=== PATIENT | female | born 1955 | race Caucasian/White ===

== ENCOUNTER 2020-08-24 10:50 | Emergency (ER) | payer OTHER, BC ==
[2020-08-24] MEDS ORDERED: Sodium Chloride 0.9% 10 ML Syringe FLUSH PRN ×2 (11:11→11:19)
[2020-08-24] MEDS ORDERED: HYDROmorphone 0.5 MG/0.5 ML Syringe IVPUSH ONE (11:13)
[2020-08-24] MEDS ORDERED: Ondansetron 4 MG/2 ML SDV IVPUSH ONE (11:13)
[2020-08-24] MEDS ORDERED: Sodium Chloride 0.9% 1,000 ML IV SCH (11:15)
[2020-08-24] MEDS ORDERED: Iopamidol 612 MG/ML 100 ML Bottle IVPUSH ONE (11:19)
--- NOTE | 2020-08-24 11:30 | EDM.PDOC ---
ED HPI GENERAL MEDICAL PROBLEM - General Chief Complaint: Back Pain or Injury Stated Complaint: PAIN IN BACK Time Seen by Provider: 08/24/20 11:05 Source of Information: Reports: Patient History Limitations: Reports: No Limitations - History of Present Illness INITIAL COMMENTS - FREE TEXT/NARRATIVE: 64-year-old female presents to the emergency department with complaints of right lower back pain and difficulty voiding. Patient was sent here by [facility]. On 22 August, 2 days ago, the patient fell backwards onto the hitch of a pickup truck. Her right lower back struck the hitch. Patient states that immediately after this event occurred she had difficulty voiding. She does complain of pain to low back and is unable to lay down flat. She states that when she sits on the toilet to void it takes her a long time to get her flow started and her urine "trickles "out of her. She states she has not noted any belia red blood in her urine. She denies any significant medical history and does not take any prescription medications. She has been taking Flexeril as prescribed by the [facility] however she states that has not been helping her discomfort. Lower Back Pain Score (Numeric/FACES): 10 - Related Data Allergies Allergy/AdvReac Type Severity Reaction Status Date / Time No Known Allergies Allergy Verified 08/24/20 11:01 Home Meds: Home Meds Cefdinir [Omnicef] 300 mg PO BID #10 cap 08/24/20 [Rx] Past Medical History Endocrine/Metabolic History: Reports: Obesity/BMI 30+ Oncologic (Cancer) History: Reports: Uterine - Past Surgical History HEENT Surgical History: Reports: LASIK Female Surgical History: Reports: Section, Hysterectomy Musculoskeletal Surgical History: Reports: Other (See Below) Other Musculoskeletal Surgeries/Procedures:: left and right ankle surgeries Social & Family History - Tobacco Use Tobacco Use Status *Q: Never Tobacco User - Caffeine Use Caffeine Use: Reports: None - Recreational Drug Use Recreational Drug Use: No ED ROS GENERAL - Review of Systems Review Of Systems: See Below Constitutional: Reports: No Symptoms HEENT: Reports: No Symptoms Respiratory: Reports: No Symptoms Cardiovascular: Reports: No Symptoms Endocrine: Reports: No Symptoms GI/Abdominal: Reports: No Symptoms : Reports: Other (hesitancy). Denies: Hematuria, Incontinence Musculoskeletal: Reports: Other (right lower back lumbar region) Skin: Reports: Bruising (right lower lumbar area) Neurological: Reports: No Symptoms Psychiatric: Reports: No Symptoms Hematologic/Lymphatic: Reports: No Symptoms Immunologic: Reports: No Symptoms ED EXAM, GI/ABD - Physical Exam Exam: See Below Exam Limited By: No Limitations General Appearance: Alert, WD/WN, Mild Distress Eyes: Bilateral: EOMI Ears: Normal External Exam, Hearing Grossly Normal Nose: Normal Inspection, Normal Mucosa, No Blood Throat/Mouth: Normal Inspection, Normal Lips, No Airway Compromise Head: Atraumatic, Normocephalic Neck: Normal Inspection, Supple, Non-Tender, Full Range of Motion Respiratory/Chest: No Respiratory Distress, Lungs Clear, Normal Breath Sounds, No Accessory Muscle Use, Chest Non-Tender Cardiovascular: Normal Peripheral Pulses, Regular Rate, Rhythm, No Edema, No Murmur GI/Abdominal Exam: Normal Bowel Sounds, Soft, Non-Tender, No Distention (Female) Exam: Deferred Rectal (Female) Exam: Deferred Back Exam: Normal Inspection, Full Range of Motion Extremities: Normal Inspection, Normal Range of Motion, Non-Tender, No Pedal Edema, Normal Capillary Refill Neurological: Alert, Oriented, Normal Cognition, Normal Reflexes Psychiatric: Normal Affect, Normal Mood Skin Exam: Warm, Dry, Intact, No Rash, Ecchymosis (right lumbar lower back approximately the size of a baseball) Lymphatic: No Adenopathy Course - Vital Signs Text/Narrative:: 64-year-old female sustained a blow to her right lower back after she fell backwards and hit the hitch of a pickup truck 2 days ago. Patient now complains of difficulty voiding, specifically hesitancy and slow stream. She denies any problems with bowel movements and just had a bowel movement yesterday as she is normally constipated and takes stool softeners. She denies any numbness or tingling down her right hip or leg. Denies belia hematuria. Denies any abdominal pain or discomfort. I have ordered a CBC, CMP, urinalysis, CT of the abdomen and pelvis with IV contrast, normal saline at 100 mL's per hour to flush the kidneys of contrast, Dilaudid half milligram IV for pain and Zofran 4 mg IV for nausea. Last Recorded V/S: Last Vital Signs Temp 98.0 F 08/24/20 10:57 Pulse 71 08/24/20 10:57 Resp 16 08/24/20 10:57 BP 156/81 H 08/24/20 10:57 Pulse Ox 95 08/24/20 10:57 - Orders/Labs/Meds Orders: Active Orders 24 hr Category Date Time Status CULTURE URINE [RM] Stat Lab 08/24/20 11:37 Received Sodium Chloride 0.9% [Normal Saline] 1,000 ml Med 08/24/20 11:15 Active IV ASDIRECTED Sodium Chloride 0.9% [Saline Flush] Med 08/24/20 11:11 Active 10 ml FLUSH ASDIRECTED PRN Sodium Chloride 0.9% [Saline Flush] Med 08/24/20 11:19 Active 10 ml FLUSH ONETIME PRN Saline Lock Insert [OM.PC] Stat Oth 08/24/20 11:11 Ordered Medication Orders Sodium Chloride (Normal Saline) 1,000 mls @ 100 mls/hr IV ASDIRECTED DOMINIC Last Admin: 08/24/20 11:34 Dose: 100 mls/hr Documented by: MATLBIL Sodium Chloride (Saline Flush) 10 ml FLUSH ASDIRECTED PRN PRN Reason: Keep Vein Open Last Admin: 08/24/20 12:55 Dose: 10 ml Documented by: EBERELI Sodium Chloride (Saline Flush) 10 ml FLUSH ONETIME PRN PRN Reason: IV FLUSH Last Admin: 08/24/20 12:04 Dose: 10 ml Documented by: SCARLET Labs: Laboratory Tests 08/24/20 08/24/20 08/24/20 Range/Units 11:15 11:15 11:37 WBC 9.53 (3.98-10.04) K/mm3 RBC 4.88 (3.98-5.22) M/mm3 Hgb 14.1 (11.2-15.7) gm/dl Hct 44.3 (34.1-44.9) % MCV 90.8 (79.4-94.8) fl MCH 28.9 (25.6-32.2) pg MCHC 31.8 L (32.2-35.5) g/dl RDW Std Deviation 43.3 (36.4-46.3) fL Plt Count 295 (182-369) K/mm3 MPV 9.2 L (9.4-12.3) fl Neut % (Auto) 68.1 (34.0-71.1) % Lymph % (Auto) 24.4 (19.3-51.7) % [place] % (Auto) 6.7 (4.7-12.5) % Eos % (Auto) 0.5 L (0.7-5.8) Baso % (Auto) 0.2 (0.1-1.2) % Neut # (Auto) 6.48 H (1.56-6.13) K/mm3 Lymph # (Auto) 2.33 (1.18-3.74) K/mm3 [place] # (Auto) 0.64 H (0.24-0.36) K/mm3 Eos # (Auto) 0.05 (0.04-0.36) K/mm3 Baso # (Auto) 0.02 (0.01-0.08) K/mm3 Sodium 142 (136-145) mEq/L Potassium 4.6 (3.5-5.1) mEq/L Chloride 104 (98-107) mEq/L Carbon Dioxide 28 (21-32) mEq/L Anion Gap 14.6 (5-15) BUN 12 (7-18) mg/dL Creatinine 0.8 (0.55-1.02) mg/dL Est Cr Clr Drug Dosing 56.93 mL/min Estimated GFR (MDRD) > 60 (>60) mL/min BUN/Creatinine Ratio 15.0 (14-18) Glucose 101 (80-115) mg/dL Calcium 9.3 (8.5-10.1) mg/dL Total Bilirubin 0.3 (0.2-1.0) mg/dL AST 15 (15-37) U/L ALT 26 (14-59) U/L Alkaline Phosphatase 82 (46-116) U/L Total Protein 7.5 (6.4-8.2) g/dl Albumin 4.1 (3.4-5.0) g/dl Globulin 3.4 gm/dL Albumin/Globulin Ratio 1.2 (1-2) Urine Color Yellow (Yellow) Urine Appearance Clear (Clear) Urine pH 7.5 (5.0-8.0) Ur Specific [place] 1.020 (1.005-1.030) Urine Protein Negative (Negative) Urine Glucose (UA) Negative (Negative) Urine Ketones Negative (Negative) Urine Occult Blood Negative (Negative) Urine Nitrite Negative (Negative) Urine Bilirubin Negative (Negative) Urine Urobilinogen 0.2 (0.2-1.0) Ur Leukocyte Esterase 1+ H (Negative) Urine RBC 0-5 (0-5) /hpf Urine WBC 5-10 H (0-5) /hpf Ur Squamous Epith Cells 5-10 H (0-5) /hpf Urine Bacteria Moderate H (FEW) /hpf Urine Mucus Not seen (FEW) /hpf Meds: Medications Generic Name Dose Route Start Last Admin Trade Name Freq PRN Reason Stop Dose Admin Sodium Chloride 1,000 mls @ 100 mls/hr 08/24/20 11:15 08/24/20 11:34 Normal Saline IV 100 mls/hr ASDIRECTED DOMINIC Administration Sodium Chloride 10 ml 08/24/20 11:11 08/24/20 12:55 Saline Flush FLUSH 10 ml ASDIRECTED PRN Administration Keep Vein Open Sodium Chloride 10 ml 08/24/20 11:19 08/24/20 12:04 Saline Flush FLUSH 10 ml ONETIME PRN Administration IV FLUSH Discontinued Medications Generic Name Dose Route Start Last Admin Trade Name Freq PRN Reason Stop Dose Admin Hydromorphone HCl 0.5 mg 08/24/20 11:13 08/24/20 11:28 Dilaudid IVPUSH 08/24/20 11:14 0.5 mg ONETIME ONE Administration Iopamidol 100 ml 08/24/20 11:19 08/24/20 12:04 Isovue-300 (61%) IVPUSH 08/24/20 11:20 100 ml ONETIME ONE Administration Iopamidol 25 ml 08/24/20 12:05 08/24/20 12:05 Isovue-300 (61%) IVPUSH 08/24/20 12:06 25 ml ONETIME ONE Administration Ondansetron HCl 4 mg 08/24/20 11:13 08/24/20 11:28 Zofran IVPUSH 08/24/20 11:14 4 mg ONETIME ONE Administration - Re-Assessments/Exams Free Text/Narrative Re-Assessment/Exam: 08/24/20 12:58 CBC and CMP are essentially unremarkable however urinalysis reveals 1+ leuk esterase, 5-10 urine WBCs, 5-10 urine squamous epithelial cells, and a moderate amount of bacteria. 08/24/20 13:36 CT of the abdomen and pelvis radiologist impression 1. Nothing acute is identified on CT study of the abdomen and pelvis. Patient will be discharged home with a prescription for Omnicef 300 mg twice a day for 5 days for urinary tract infection. Departure - Departure Time of Disposition: 13:36 Disposition: Home, Self-Care 01 Condition: Good Clinical Impression: UTI (urinary tract infection) Qualifiers: Urinary tract infection type: site unspecified Hematuria presence: without hematuria Qualified Code(s): N39.0 - Urinary tract infection, site not specified - Discharge Information Prescriptions: Cefdinir [Omnicef] 300 mg PO BID #10 cap Instructions: Urinary Tract Infection, Adult, [id number] Referrals: Hodan Lorenzo MD [Primary Care Provider] - Forms: ED Department Discharge Additional Instructions: You were seen in the ED with complaints of right sided low back pain that started after falling and hitting a trailer hitch. You also are having difficulties voiding. CT scan was unremarkable for any injuries. However, your urine came back positive for an infection. A prescription for omnicef was sent to your pharmacy. You will need to take this twice daily for the next 5 days. Also recommend that you alternate Tylenol 650mg and Motrin 600mg every 4 hours for the next 2 days. This will likely control your discomfort in your low back. Follow up with your primary care provider if this is not better in about a week. Should your condition worsen or change, please return to the emergency department. Sepsis Event Note (ED) - Evaluation Sepsis Screening Result: No Definite Risk - Focused Exam Vital Signs: Vital Signs Temp Pulse Resp BP Pulse Ox 08/24/20 10:57 98.0 F 71 16 156/81 H 95 - My Orders Last 24 Hours: My Active Orders 08/24/20 11:11 Sodium Chloride 0.9% [Saline Flush] 10 ml FLUSH ASDIRECTED PRN Saline Lock Insert [OM.PC] Stat 08/24/20 11:15 Sodium Chloride 0.9% [Normal Saline] 1,000 ml IV ASDIRECTED 08/24/20 11:19 Sodium Chloride 0.9% [Saline Flush] 10 ml FLUSH ONETIME PRN 08/24/20 11:37 CULTURE URINE [RM] Stat - Assessment/Plan Last 24 Hours: My Active Orders 08/24/20 11:11 Sodium Chloride 0.9% [Saline Flush] 10 ml FLUSH ASDIRECTED PRN Saline Lock Insert [OM.PC] Stat 08/24/20 11:15 Sodium Chloride 0.9% [Normal Saline] 1,000 ml IV ASDIRECTED 08/24/20 11:19 Sodium Chloride 0.9% [Saline Flush] 10 ml FLUSH ONETIME PRN 08/24/20 11:37 CULTURE URINE [RM] Stat
[2020-08-24] MEDS ORDERED: Iopamidol 612 MG/ML 50 ML SDV IVPUSH ONE (12:05)
--- NOTE | 2020-08-24 13:26 | CT ---
CT abdomen and pelvis Technique: Multiple axial sections were obtained from above the dome of the diaphragm inferiorly through the pubic symphysis. Intravenous contrast was utilized. No oral contrast has been given. Delayed images were also obtained from above the kidneys inferiorly through the pubic symphysis. Reconstructed coronal and sagittal images were also obtained. Findings: Visualized lung bases show nothing acute. Liver contains no focal parenchymal abnormality. Spleen appears within normal limits. Adrenal glands show no nodule. Pancreas appears within normal limits. Gallbladder contains no calcified gallstones. Aorta shows no aneurysm. No retroperitoneal adenopathy is appreciated. Kidneys show several very minimal low density areas which most likely represent very minimal cyst. Delayed images shows contrast excretion into the ureters which showed no dilatation. Contrast is noted within the bladder. No mesenteric abnormalities are seen. No pelvic mass or adenopathy is noted. Previous hysterectomy is noted. Bone window settings were reviewed which appear within normal limits for the patient's age. Small fat-containing umbilical hernia is noted. Impression: 1. Findings as noted above. 2. Nothing acute is identified on CT study of the abdomen and pelvis. Diagnostic code #2
== END 2020-08-24 13:55 | disposition home or self-care (01) ==
LOC: JD.ED 10:50
DX: N39.0 Urinary tract infection, site not specified (principal); E66.9 Obesity, unspecified; Z68.36 Body mass index [BMI] 36.0-36.9, adult
CPT/HCPCS: 36415; 74177; 80053; 81001; 85025; 87086; 87088; 87186; 96374; 96375; 99284; J1170; J2405; J7030; Q9967

== ENCOUNTER 2021-06-18 08:05 | Day surgery (SDC) | payer BC, OTHER ==
[~2021-06-18 08:05] MED LIST: Acetaminophen 325 MG Tab PO SCH; EPINEPHrine 1 MG/ML SDV ONE; Lactated Ringers 1,000 ML IV SCH; Lidocaine 1%/Sod Bicarbonate in NS 8.4% 1 ML Syringe IDERM PRN; Morphine 8 MG, EPINEPHrine 0.3 MG, Cefuroxime 750 MG, Ketorolac 30 MG, Sodium Chloride ... PRN; Pregabalin 25 MG Cap PO SCH; Ropivacaine 0.5% 5 MG/ML 30 ML SDV ONE; Sodium Chloride 0.9% 10 ML Syringe FLUSH PRN; oxyCODONE ER 10 MG TAB.ER PO SCH
[2021-06-18] MEDS ORDERED: Lactated Ringers 1,000 ML ONE (08:23)
[2021-06-18] MEDS ORDERED: Propofol 200 MG/20 ML SDV ONE (08:23)
[2021-06-18] MEDS ORDERED: ceFAZolin 1 GM Vial ONE (08:23)
[2021-06-18] MEDS ORDERED: fentaNYL 100 MCG/2 ML SDV ONE (08:24)
[2021-06-18] MEDS ORDERED: Midazolam 1 MG/ML 2 ML SDV ONE (08:24)
--- NOTE | 2021-06-18 10:05 | PCM.PREANE ---
Preanesthetic Assessment - Anesthesia/Transfusion/Family Hx Anesthesia History: Prior Anesthesia Without Reaction Family History of Anesthesia Reaction: No Transfusion History: No Prior Transfusion(s) - Review of Systems General: No Symptoms, Other (obesity, bmi 40) Pulmonary: No Symptoms Cardiovascular: No Symptoms (active, 4 mets) Gastrointestinal: Other (GERD, takes otc for it ) Neurological: No Symptoms Other: Reports: Diabetes, Thyroid Problems - Physical Assessment NPO Status Date: 06/17/21 NPO Status Time: 19:00 Vital Signs: Last Vital Signs Temp 36.8 C 06/18/21 08:30 Pulse 74 06/18/21 08:30 Resp 17 06/18/21 08:30 BP 165/72 H 06/18/21 09:20 Pulse Ox 96 06/18/21 08:30 Height: 1.55 m Weight: 96 kg ASA Class: 2 Mental Status: Alert & Oriented x3 Airway Class: Mallampati = 2 Dentition: Reports: Normal Dentition Thyro-Mental Finger Breadths: 3 Mouth Opening Finger Breadths: 3 ROM/Head Extension: Full Lungs: Clear to Auscultation, Normal Respiratory Effort Cardiovascular: Regular Rate, Regular Rhythm - Allergies Allergies/Adverse Reactions: Allergies Allergy/AdvReac Type Severity Reaction Status Date / Time No Known Allergies Allergy Verified 06/18/21 09:11 - Blood Product(s) Available: None - Anesthesia Plan Pre-Op Medication Ordered: None - Acknowledgements Anesthesia Type Planned: Spinal Pt an Appropriate Candidate for the Planned Anesthesia: Yes Alternatives and Risks of Anesthesia Discussed w Pt/Guardian: Yes Pt/Guardian Understands and Agrees with Anesthesia Plan: Yes PreAnesthesia Questionnaire HEENT History: Reports: Impaired Vision Cardiovascular History: Reports: None Respiratory History: Reports: None Gastrointestinal History: Reports: None Genitourinary History: Reports: None [employer]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: Musculoskeletal History: Reports: Arthritis, Osteoarthritis Neurological History: Reports: None Psychiatric History: Reports: None Endocrine/Metabolic History: Reports: None Hematologic History: Reports: None Immunologic History: Reports: None Oncologic (Cancer) History: Reports: Uterine Dermatologic History: Reports: None - Infectious Disease History Infectious Disease History: Reports: None - Past Surgical History HEENT Surgical History: Reports: LASIK Cardiovascular Surgical History: Reports: None GI Surgical History: Reports: Colonoscopy Female Surgical History: Reports: Section, Hysterectomy Male Surgical History: Reports: None Endocrine Surgical History: Reports: None Neurological Surgical History: Reports: None Musculoskeletal Surgical History: Reports: Other (See Below) Other Musculoskeletal Surgeries/Procedures:: right ankle joint replacement Oncologic Surgical History: Reports: None Dermatological Surgical History: Reports: None - SUBSTANCE USE Tobacco Use Status *Q: Former Tobacco User Recreational Drug Use History: No - HOME MEDS Home Medications: Home Meds FLUoxetine HCl [Prozac] 20 mg PO DAILY 06/15/21 [History] Melatonin 10 mg PO BEDTIME 06/15/21 [History] Aspirin [Aspirin EC] 325 mg PO BID #60 tab 06/18/21 [Rx] oxyCODONE 5 - 10 mg PO Q4H PRN #40 tab 06/18/21 [Rx] - CURRENT (IN HOUSE) MEDS Current Meds: Current Medications Acetaminophen (Acetaminophen 325 Mg Tab) 975 mg PO ONETIME DOMINIC Stop: 06/18/21 14:00 Last Admin: 06/18/21 08:57 Dose: 975 mg Documented by: Morphine Sulfate 8 mg/Epinephrine HCl 0.3 mg/Cefuroxime Sodium 750 mg/Ketorolac Tromethamine 30 mg/Sodium Chloride 7.9 ml 0 mg .XX ASDIRECTED PRN PRN Reason: Pain Stop: 06/18/21 18:00 Lactated Ringer's (Ringers, Lactated) 1,000 mls @ 125 mls/hr IV ASDIRECTED DOMINIC Stop: 06/18/21 23:00 Last Admin: 06/18/21 08:40 Dose: 125 mls/hr Documented by: Lidocaine/Sodium Bicarbonate (Lidocaine 1%/Sod Bicarbonate In Ns 8.4% 1 Ml Syringe) 0.25 ml IDERM ONETIME PRN PRN Reason: Prior to IV Start Stop: 06/18/21 18:00 Oxycodone HCl (Oxycodone Er 10 Mg Tab.Er) 10 mg PO ONETIME DOMINIC Stop: 06/18/21 14:00 Last Admin: 06/18/21 08:57 Dose: 10 mg Documented by: Pregabalin (Pregabalin 25 Mg Cap) 50 mg PO ONETIME DOMINIC Stop: 06/18/21 14:00 Last Admin: 06/18/21 08:59 Dose: 50 mg Documented by: Sodium Chloride (Sodium Chloride 0.9% 10 Ml Syringe) 10 ml FLUSH ASDIRECTED PRN PRN Reason: Keep Vein Open Stop: 06/18/21 18:00 Discontinued Medications Cefazolin Sodium (Cefazolin 1 Gm Vial) Confirm Administered Dose 2 gm .ROUTE .STK-MED ONE Stop: 06/18/21 08:24 Epinephrine HCl (Epinephrine 1 Mg/Ml Sdv) Confirm Administered Dose 1 mg .ROUTE .STK-MED ONE Stop: 06/18/21 07:44 Fentanyl (Fentanyl 100 Mcg/2 Ml Sdv) Confirm Administered Dose 100 mcg .ROUTE .STK-MED ONE Stop: 06/18/21 08:25 Lactated Ringer's (Ringers, Lactated) Confirm Administered Dose 1,000 mls @ as directed .ROUTE .STK-MED ONE Stop: 06/18/21 08:24 Midazolam HCl (Midazolam 1 Mg/Ml 2 Ml Sdv) Confirm Administered Dose 2 mg .ROUTE .STK-MED ONE Stop: 06/18/21 08:25 Propofol (Propofol 200 Mg/20 Ml Sdv) Confirm Administered Dose 600 mg .ROUTE .STK-MED ONE Stop: 06/18/21 08:24 Ropivacaine (Ropivacaine 0.5% 5 Mg/Ml 30 Ml Sdv) Confirm Administered Dose 30 ml .ROUTE .STK-MED ONE Stop: 06/18/21 07:44
[2021-06-18] MEDS ORDERED: Triamcinolone Acetonide 40 MG/ML 1 ML SDV ONE (10:11)
[2021-06-18] MEDS ORDERED: Bupivacaine 0.25% 10 ML SDV ONE (10:11)
[2021-06-18] MEDS ORDERED: Vancomycin 1 GM SDV ONE (10:11)
[2021-06-18] MEDS ORDERED: Ondansetron 4 MG/2 ML SDV ONE (11:35)
[2021-06-18] MEDS ORDERED: HYDROmorphone 0.5 MG/0.5 ML Syringe IVPUSH PRN (12:26)
[2021-06-18] MEDS ORDERED: fentaNYL 100 MCG/2 ML SDV IVPUSH PRN (12:26)
[2021-06-18] MEDS ORDERED: Ondansetron 4 MG/2 ML SDV IVPUSH PRN (12:26)
--- NOTE | 2021-06-18 13:07 | PCM.POSTAN ---
POST ANESTHESIA ASSESSMENT - MENTAL STATUS Mental Status: Alert, Oriented - VITAL SIGNS Vital Signs: Last Vital Signs Temp 36.8 C 06/18/21 08:30 Pulse 74 06/18/21 08:30 Resp 17 06/18/21 08:30 BP 165/72 H 06/18/21 09:20 Pulse Ox 96 06/18/21 08:30 - RESPIRATORY Respiratory Status: Respiratory Rate WNL, Airway Patent, O2 Saturation Stable, Supplemental Oxygen - CARDIOVASCULAR CV Status: Pulse Rate WNL, Blood Pressure Stable - GASTROINTESTINAL GI Status: No Symptoms - PAIN Pain Score: 0 - POST OP HYDRATION Hydration Status: Adequate & Stable
--- NOTE | 2021-06-18 13:35 | PCM.SN.2 ---
- Free Text/Narrative Note: Left selective femoral nerve block at the adductor canal for post-procedure pain control under US guidance requested by Dr. Taylor. Date:06/18/21 Time Out: 1315 Start: 1315 End: 1320 Chart reviewed. Consent signed. Questions answered. Appropriate monitors applied. Time out performed. Left mid-shaft femur identified with ultrasound, scanning medially of femur, the femoral artery in the adductor canal visualized, and the femoral nerve located laterally to the artery. The skin was prepped lateral to the ultrasound probe with chlorahexadine times two. The 21ga 4 insulated block needle was inserted under direct ultrasound guidance into the adductor canal. 25mL of 0.5% ropivacaine with 1:200,000 epinephrine was injected circumferentially around the nerve with intermittent negative aspiration noted. Patient tolerated the procedure well. Sterile technique noted along with sterile gloves, mask, and sterile probe cover. See picture on progress note and vital signs on nurses notes. Block completed in PACU. Xiomy Neff CRNA
--- NOTE | 2021-06-18 13:48 | PCM48HPAN ---
Post Anesthesia Note - EVALUATION WITHIN 48HRS OF ANESTHETIC Vital Signs in Normal Range: Yes Patient Participated in Evaluation: Yes Respiratory Function Stable: Yes Airway Patent: Yes Cardiovascular Function Stable: Yes Hydration Status Stable: Yes Pain Control Satisfactory: Yes Nausea and Vomiting Control Satisfactory: Yes Mental Status Recovered: Yes Vital Signs: Last Vital Signs Temp 36.8 C 06/18/21 08:30 Pulse 74 06/18/21 08:30 Resp 17 06/18/21 08:30 BP 165/72 H 06/18/21 09:20 Pulse Ox 96 06/18/21 08:30
[2021-06-18] MEDS ORDERED: oxyCODONE 5 MG Tab PO ONE (14:20)
--- NOTE | 2021-06-18 15:04 | CR ---
Left knee: AP and crosstable lateral views of the left knee were obtained. Comparison: Prior surgical knee study of 06/06/21. Knee prosthesis is noted as well as patellar prosthesis. Components are aligned. Underlying bony structure shows nothing else acute. Soft tissue air is noted. Impression: 1. Satisfactory postoperative radiographic appearance of recently placed left knee prostheses. Diagnostic code #2
--- NOTE | 2021-07-02 12:51 | PCM.OPNOTE ---
- General Post-Op/Procedure Note Date of Surgery/Procedure: 06/18/21 Operative Procedure(s): left total knee arthroplasty with [employer] with right knee corticosteroid injection Pre Op Diagnosis: bilateral knee osteoarthrosis Post-Op Diagnosis: Same Anesthesia Technique: Local, MAC, Spinal Primary Surgeon: Adelso Taylor Anesthesia Provider: Xiomy Neff Aesthetics Instructor: Suzie Franklin Aesthetics Instructor: Mena Isaacs EBL in mLs: 300 Complications: None Condition: Good Free Text/Narrative:: 10/04 9mm 32x10
--- NOTE | 2021-07-03 07:07 | OR ---
DATE OF OPERATION: 06/18/2021 SURGEON: Adelso Taylor MD OPERATION PERFORMED: Left total knee arthroplasty with Dryden Leonid robotics with right knee corticosteroid injection. PREOPERATIVE DIAGNOSIS: Bilateral knee osteoarthrosis. POSTOPERATIVE DIAGNOSIS: Bilateral knee osteoarthrosis. ANESTHESIA: Local MAC with spinal. ANESTHESIA PROVIDER: Xiomy Neff. ASSISTANTS: Suzie Franklin PA-C; and Mena Isaacs LPN. ESTIMATED BLOOD LOSS: 300 mL. COMPLICATIONS: None. CONDITION: Stable. IMPLANTS: 1. Barb size 3 press-fit CR femur. 2. Dryden size 3 press-fit tibial baseplate. 3. Barb size 3 9 mm CS polyethylene insert. 4. Dryden size 32 x 10 mm press-fit asymmetric patella. DESCRIPTION OF PROCEDURE: The patient was identified in the preop holding area. Proper site was marked and identified by the surgeon. The patient was taken back to the operating theater, where after adequate anesthesia, the patient's left lower extremity had a nonsterile tourniquet applied and then it was sterilely prepped and draped in the usual sterile fashion. OR time-out was performed. The patient received 2 g IV Ancef. Leg rahman was then applied to the left lower extremity. At this time, the left lower extremity was exsanguinated. Tourniquet was insufflated to 250 mmHg. Standard anterior incision was made. Medial parapatellar arthrotomy was created. Deep fibers of the MCL were raised and anterior fat pad was resected. Attention was turned to the patella. Patella measured a 24, it was resected to a 14 for a 32 x 10 mm patella. Drill holes were then drilled. Attention was then turned to the femur. Two 4.0 Schanz pins were placed intra- incisionally on the femur for the Dryden Leonid robotic array and then 2 more were placed on the tibia 3 fingerbreadths below the tibial tubercle. The Dryden Leonid robotic arrays were placed on both the femur and the tibia at this time as well as checkpoints on the femur and tibia. Hip center rotation was then obtained. The medial and lateral malleoli were marked as well as the checkpoints were marked for the Barb Leonid robotic plan. The patient's knee was brought to full extension, varus and valgus stresses were applied, and then into 90 degrees of flexion. Dryden Leonid robotic plan for this patient was then undertaken to match the flexion and extension gaps. A straight saw blade was then brought in. Tibial cut was completed as well as an anterior femoral cut, anterior chamfer cut, and posterior femoral cut. Saw blade was then switched out and the distal femoral cut as well as the posterior chamfer cut was completed. All bony fragments were removed. At this time, medial and lateral menisci were resected as well as any posterior osteophytes. Attention was turned to the tibia. The size 3 trial baseplate was placed on the tibia and a size 3 trial femur was placed on the femur. A size 3 9 mm trial poly was placed. The patient's knee was brought to full extension and flexion. Varus and valgus stresses were applied, was found to be stable with no instability. No signs of liftoff or loosening on the tibial baseplate. At this time, femoral drill holes were drilled, and the tibia was stamped and drilled in proper rotation. All trial implants were then removed. The size 3 tibial baseplate was impacted into place, size 3 femoral component was impacted into place, and then a size 3 9 mm CS polyethylene insert was impacted into place. A size 32 x 10 mm press-fit patella was then press-fit into place. The tourniquet was deflated. Bleeders were cauterized. 1 L pulse lavage irrigation with Ancef was irrigated through the knee along with 400 mL IrriSept irrigation. Periarticular injection was completed. Topical tranexamic acid and vancomycin powder were applied. All checkpoints and pins were removed. At this point, a #2 barbed suture was used for closure of the medial parapatellar arthrotomy in flexion. 2- 0 Vicryl and Stratafix were used for subcutaneous closure. Prineo was used for cutaneous closure. 3-0 nylons were used for closure of the pin holes on the tibia. The patient had a sterile soft dressing applied. The patient had an ALANNAH wrap applied and was sent to PACU in stable condition. The patient tolerated the procedure well. Under sterile technique, 2 mL of 40 mg Kenalog and 4 mL of 0.25% Marcaine were injected to the patient's right knee and the patient tolerated all procedures well. MMODAL /[id number]
== END 2021-06-18 15:55 | disposition home or self-care (01) ==
LOC: JD.SDS 08:05
PROVIDERS: ATTEND Orthopaedic Surgery
DX: M17.0 Bilateral primary osteoarthritis of knee (principal); G89.18 Other acute postprocedural pain; Z79.899 Other long term (current) drug therapy; Z98.890 Other specified postprocedural states; Z87.891 Personal history of nicotine dependence
CPT/HCPCS: 01402; 73560-26-LT; 73560-LT; 97116-GP; 97161-GP; A9270-GY; C1713; C1776; J0171; J0690; J0697; J1885; J2250; J2270; J2370; J2405; J2704; J2795; J3010; J3301; J3370; J3490; J7120

== ENCOUNTER → 2022-05-13 | Day surgery (SDC) | payer MEDICAID, OTHER ==
[~2022-05-13] MED LIST changes: -Acetaminophen 325 MG Tab PO SCH; -EPINEPHrine 1 MG/ML SDV ONE; +Ketorolac 30 MG/ML SDV IVPUSH ONE; +Lactated Ringers 1,000 ML IV ONE; -Lactated Ringers 1,000 ML IV SCH; +Lidocaine 1% PF 2 ML SDV INJECT ONE; +Lidocaine 1%/Sod Bicarbonate in NS 8.4% 1 ML Syringe IDERM ONE; -Lidocaine 1%/Sod Bicarbonate in NS 8.4% 1 ML Syringe IDERM PRN; +Midazolam 1 MG/ML 2 ML SDV IV ONE; -Morphine 8 MG, EPINEPHrine 0.3 MG, Cefuroxime 750 MG, Ketorolac 30 MG, Sodium Chloride ... PRN; +Ondansetron 4 MG/2 ML SDV IV ONE; -Pregabalin 25 MG Cap PO SCH; +Propofol 200 MG/20 ML SDV IV ONE; -Ropivacaine 0.5% 5 MG/ML 30 ML SDV ONE; -Sodium Chloride 0.9% 10 ML Syringe FLUSH PRN; +ceFAZolin 2 GM Vial IV ONE; +fentaNYL 100 MCG/2 ML SDV IV ONE; -oxyCODONE ER 10 MG TAB.ER PO SCH
== END ==
LOC: JD.SDS 06:00
PROVIDERS: ATTEND Orthopaedic Surgery
DX: M65.841 Other synovitis and tenosynovitis, right hand (principal); M19.041 Primary osteoarthritis, right hand; M19.042 Primary osteoarthritis, left hand; F33.1 Major depressive disorder, recurrent, moderate; I10 Essential (primary) hypertension; E66.9 Obesity, unspecified; Z79.899 Other long term (current) drug therapy; Z98.890 Other specified postprocedural states; Z87.891 Personal history of nicotine dependence; Z68.41 Body mass index [BMI] 40.0-44.9, adult
CPT/HCPCS: 20605; 26055; J7120; J0690; J1885; J2250; J2405; J2704; J3010